=== PATIENT | male | born 1965 | race African-American/Black ===

== ENCOUNTER 2019-07-06 07:38 | Day surgery (SDC) | payer MEDICARE, MEDICAID ==
[~2019-07-06] VITALS: Ht 180.3 cm; Wt 132.4 kg
[2019-07-06] MEDS ORDERED: IOHEXOL 350 MG/ML 100ML IJ ONE (08:17)
[2019-07-06] MEDS ORDERED: LIDOCAINE 2%HCL (LOCAL ANESTH.) INJ 20ML MDV ONE ×2 (08:17→10:06)
[2019-07-06] MEDS ORDERED: ANGIOMAX 250 MG VIAL IV ONE (09:08)
[2019-07-06] MEDS ORDERED: MIDAZOLAM HCL 1MG/1ML-2 ML VIAL ONE (09:09)
[2019-07-06] MEDS ORDERED: SODIUM CHL 0.9% 0 ML ONE (09:09)
[2019-07-06] MEDS ORDERED: fentaNYL CITRATE 100 MCG/2 ML VL ONE (09:09)
== END 2019-07-06 17:30 | disposition home or self-care (01) ==
LOC: CATH 07:38
PROVIDERS: ATTEND Internal Medicine Cardiovascular Disease
DX: I25.10 Atherosclerotic heart disease of native coronary artery without angina pectoris (principal); I11.0 Hypertensive heart disease with heart failure; I50.20 Unspecified systolic (congestive) heart failure; I27.20 Pulmonary hypertension, unspecified; E66.8 Other obesity; K42.9 Umbilical hernia without obstruction or gangrene; E78.5 Hyperlipidemia, unspecified; E11.65 Type 2 diabetes mellitus with hyperglycemia; G47.33 Obstructive sleep apnea (adult) (pediatric); E05.90 Thyrotoxicosis, unspecified without thyrotoxic crisis or storm; J44.1 Chronic obstructive pulmonary disease with (acute) exacerbation; F17.210 Nicotine dependence, cigarettes, uncomplicated; Z79.84 Long term (current) use of oral hypoglycemic drugs; Z79.4 Long term (current) use of insulin; Z79.82 Long term (current) use of aspirin; Z79.899 Other long term (current) drug therapy; Z68.41 Body mass index [BMI] 40.0-44.9, adult; Z91.018 Allergy to other foods; Z91.048 Other nonmedicinal substance allergy status
CPT/HCPCS: 82962; 93460; C1751; C1894; J1644; J2250; J3010; J7030; Q9967; 99152; 99153